=== PATIENT | male | born 1960 | race Two or more races ===

== ENCOUNTER 2019-02-17 07:15 | Outpatient (CLI) | payer OTHER | END 2019-02-17 07:18 | disposition home or self-care (01) | LOC: SONOGRAMA 07:15 | DX: E04.1 Nontoxic single thyroid nodule (principal) ==

== ENCOUNTER 2020-03-13 08:16 | Outpatient (CLI) | payer OTHER | END 2020-03-13 08:26 | disposition home or self-care (01) | LOC: SONOGRAMA 08:16 → MAMO-SONO 08:45 | PROVIDERS: ATTEND Specialist | DX: N50.3 Cyst of epididymis (principal); N45.2 Orchitis; I86.1 Scrotal varices ==

== ENCOUNTER 2020-12-28 07:12 | Outpatient (CLI) | payer OTHER | END 2020-12-28 07:15 | disposition home or self-care (01) | LOC: SONOGRAMA 07:12 → MAMO-SONO 08:00 | PROVIDERS: ATTEND Specialist | DX: R97.20 Elevated prostate specific antigen [PSA] (principal); N40.3 Nodular prostate with lower urinary tract symptoms ==

== ENCOUNTER 2022-09-15 11:16 | Outpatient (CLI) | payer OTHER | END 2022-09-15 11:18 | disposition home or self-care (01) | LOC: SONOGRAMA 11:16 | PROVIDERS: ATTEND Pathology Anatomic Pathology | DX: D34 Benign neoplasm of thyroid gland (principal); E04.9 Nontoxic goiter, unspecified ==